=== PATIENT | male | born 1990 | race Caucasian/White ===

== ENCOUNTER 2018-06-04 17:53 | Emergency (ER) | payer OTHER ==
[~2018-06-04] VITALS: Ht 172.7 cm; Wt 67.8 kg
[2018-06-04 18:02] VITALS: Ht 172.7 cm; Wt 67.8 kg
[2018-06-04 18:51] LABS: AMPHETAMINE QUAL UR NONE DETECTED (See below)
[2018-06-04 19:24] LABS: CALCIUM 10.1 mg/dL (8.5-10.1); CARBON DIOXIDE 34.5 mmol/L (21-32); CHLORIDE SERUM 92 mmol/L (98-107); GFR1 > 60 mL/min; GLUCOSE SERUM 107 mg/dL (74-106); SODIUM SERUM 126 mmol/L (136-145)
[2018-06-04 19:28] LABS: POTASSIUM SERUM 2.7 mmol/L (3.5-5.1)
[2018-06-05 01:36] VITALS: BP 123/66
== END 2018-06-05 02:04 | disposition home or self-care (01) ==
LOC: ED 17:53
PROVIDERS: Specialist
DX: E87.6 Hypokalemia (principal); E87.1 Hypo-osmolality and hyponatremia
CPT/HCPCS: J2405; J2765; J3475; J3480; J7030